=== PATIENT | male | born 1995 | race Caucasian/White ===

== ENCOUNTER 2024-06-17 08:13 | Emergency (ER) | payer SELFPAY ==
[2024-06-17 08:14] VITALS: BP 125/89; PULSE 114; RESP 22; TEMP 37.1; O2SAT 100; BMI 24.7
--- NOTE | 2024-06-17 08:32 | EDS_ITS ---
HPI History of Present Illness Chief Complaint: Cold Sx Narrative Narrative: 28-year-old male no significant past medical history presents with his fiderrell?migdalia because of 3 days worth of upper respiratory infection symptoms and viral syndrome. She was sick possibly a day prior. He began feeling subjective fever, chills, body aches, runny nose, sore throat, and a dry cough. He has been taking ibuprofen with mild relief of his symptoms. He missed a day of work or 2. He is also taking [id number]-[id number] medication such as DayQuil. [facility] Medical History (Updated 06/17/24 @ 10:13 by Pankaj Tobar MD) Tonsillectomy planned Home Medications ?Medication ?Instructions ?Recorded ?Last Taken ?Type NK 06/17/24 Unknown History Allergy/AdvReac Type Severity Reaction Status Date / Time bee venom protein (honey Allergy Intermediate Hives Verified 06/17/24 08:16 bee) (bee sting) Penicillins (PCN) Allergy Intermediate Hives Verified 06/17/24 08:16 Social History Smoking Status: Current every day smoker tobacco type: e-cigarettes ROS ROS ED ROS Narrative Constitutional: Subjective fever, positive chills. HEENT: Positive sore throat treated with cough drops. No neck pain. Positive nasal congestion and rhinorrhea. Cardiovascular: No chest pain. No palpitations. No pedal edema. Respiratory: Positive dry cough, no shortness of breath. Abdominal: No abdominal pain. Positive nausea. No vomiting. Able to swallow liquids. Musculoskeletal: Multiple myalgias and arthralgias Neurologic: Positive headaches. No dizziness. No lightheadedness. Skin: No rash. EXAM Physical Exam Narrative Exam Narrative: Afebrile. Vital signs noted. Nontoxic-appearing. HEENT: Normocephalic. Atraumatic. PERRL, EOMI. Neck soft and supple. Airway patent. Mild pharyngeal erythema. No pharyngeal exudate. No meningismus. Positive nasal congestion. Cardiovascular: Positive tachycardia no murmurs, rubs, or gallops appreciated. Respiratory: Mild tachypnea. Lungs clear to auscultation bilaterally. No wheezing. Gastrointestinal: Abdomen soft, nontender, with normoactive bowel sounds. No rebound or guarding. Neurological: Awake. Alert. Nonfocal, nonlateralizing. Skin: No rash. Normal color. No pallor. Musculoskeletal: Full range of motion extremities. Const Vital Signs: 06/17/24 08:14 06/17/24 08:41 Temperature 98.8 F Temperature Source Temporal Pulse Rate 114 H Respiratory Rate 22 H Respiratory Effort Normal Non-Labored Respiratory Pattern Normal Blood Pressure 125/89 H Blood Pressure Mean 101 Pulse Ox 100 Oxygen Delivery Method Room Air MDM MDM MDM Narrative Medical decision making narrative: Differential diagnosis includes but not limited to viral syndrome from COVID, influenza, RSV. He may have more of a rhinovirus as well. I have a low suspicion for pneumonia although it is in the differential diagnosis. This is based on his lung examination with his lungs clear to auscultation bilaterally a nd a pulse ox of 100% on room air. He is afebrile here. Respiratory swab was obtained and patient given a note to be off work for today in the next 2 days. His respiratory swab was obtained and reviewed. He is positive for influenza A. She will be symptomatic. He will take [id number] medications as needed, drink plenty of oral fluids and rest. Follow-up with primary care provider if n ot improving in a week. Return instructions to the emergency department reviewed. Disposition is discharged home in stable condition. History & Record Review Discussion w/independent historian: Patient and Family Discharge Plan Triage Chief Complaint: Cold Sx ED Provider: Pankaj Tobar Dx/Rx/DC Orders Clinical Impression: Viral syndrome, Influenza A Instructions: ED Influenza (Adult), ED Viral Syndrome (Adult) Prescriptions: No Action NK Stand Alone Forms: ED Work / School Excuse Primary Care Provider: Hallie Hyde Referrals: Hallie Hyde MD [Primary Care Provider] - 1 Week if not improving Activity Restrictions/Additional Instructions: Follow-up with your primary care provider. Continue ibuprofen and/or Tylenol as needed for pain or fever. Drink plenty of oral fluids. Print Language: Georgian Disposition Disposition: Home, Self Care
[2024-06-17 10:21] VITALS: BP 125/89; PULSE 114; RESP 22; TEMP 37.1; O2SAT 100
== END 2024-06-17 10:21 | disposition home or self-care (01) ==
LOC: ED 09:23
PROVIDERS: Emergency Provider Emergency Medicine; PCP Family Medicine; Visit Provider Emergency Medicine
DX: J10.1 Influenza due to other identified influenza virus with other respiratory manifestations (principal); B34.9 Viral infection, unspecified; F17.290 Nicotine dependence, other tobacco product, uncomplicated
CPT/HCPCS: 87631; 99282